=== PATIENT | female | born 1950 | race Caucasian/White ===

== ENCOUNTER 2021-02-22 18:23 | Inpatient (IN) ==
[2021-02-22] MEDS ORDERED: Loratadine 10 MG TABLET PO PRN (18:33)
[2021-02-22] MEDS ORDERED: QUEtiapine Fumarate 25 MG TABLET PO SCH (21:00)
[2021-02-23] MEDS: Gabapentin 100 MG CAPSULE PO SCH ×4 (03:39→21:45)
[2021-02-23] MEDS: QUEtiapine Fumarate 25 MG TABLET PO SCH ×4 (03:40→21:44)
[2021-02-23 06:36] LABS: Basophils % 0.5 %; Eosinophils # 0.1 K/mcL (0.0-0.6); Eosinophils % 0.8 %; Hematocrit 23.5 % (35.3-44.9); Hemoglobin 7.6 g/dL (11.5-15.4); Immature Granulocytes % 1.5 % (0-4); Lymphocytes # 0.8 K/mcL (0.6-4.6); Lymphocytes % 12.5 %; Mean Corpuscular HGB Conc 32.3 g/dL (31.6-35.5); Mean Corpuscular Hemoglobin 28.8 pg (28.0-33.3); Mean Platelet Volume 10.6 fL (9.4-12.4); Monocytes # 0.6 K/mcL (0.0-1.3); Monocytes % 9.1 %; Neutrophils # 4.6 K/mcL (1.6-8.9); Platelet Count 267 K/mcL (140-400); Red Blood Count 2.64 M/mcL (3.82-4.97); Red Cell Distribution Width 17.4 % (11.5-14.5); Segmented Neutrophils % 75.6 %; White Blood Count 6.1 K/mcL (4.3-11.1)
[2021-02-23 06:56] LABS: Potassium 3.6 mEq/L (3.5-5.1)
[2021-02-23] MEDS: Furosemide 40 MG TABLET PO SCH (09:23)
[2021-02-23] MEDS: amLODIPine 5 MG TABLET PO SCH (09:23)
[2021-02-23] MEDS: Thiamine (B-1) 100 MG TABLET PO SCH (09:23)
[2021-02-23] MEDS: Aspirin 81 MG TAB.CHEW PO SCH (09:23)
[2021-02-23] MEDS: (Glucosamine Chondroit) PO SCH (09:24)
[2021-02-23] MEDS: Multivit/Ca/Min/Fe/FA 1 TAB TABLET PO SCH (09:24)
[2021-02-24] MEDS: Thiamine (B-1) 100 MG TABLET PO SCH (09:19)
[2021-02-24] MEDS: Aspirin 81 MG TAB.CHEW PO SCH (09:19)
[2021-02-24] MEDS: Multivit/Ca/Min/Fe/FA 1 TAB TABLET PO SCH (09:19)
[2021-02-24] MEDS: QUEtiapine Fumarate 25 MG TABLET PO SCH ×3 (09:20→22:10)
[2021-02-24] MEDS: Gabapentin 100 MG CAPSULE PO SCH ×3 (09:20→22:10)
[2021-02-24] MEDS: amLODIPine 5 MG TABLET PO SCH (09:20)
[2021-02-24] MEDS: Furosemide 40 MG TABLET PO SCH (09:20)
[2021-02-24] MEDS: (Glucosamine Chondroit) PO SCH (09:20)
[2021-02-25] MEDS: Aspirin 81 MG TAB.CHEW PO SCH (19:32)
[2021-02-25] MEDS: amLODIPine 5 MG TABLET PO SCH (19:33)
[2021-02-25] MEDS: Gabapentin 100 MG CAPSULE PO SCH ×3 (19:33→20:32)
[2021-02-25] MEDS: Furosemide 40 MG TABLET PO SCH (19:33)
[2021-02-25] MEDS: (Glucosamine Chondroit) PO SCH (19:33)
[2021-02-25] MEDS: Thiamine (B-1) 100 MG TABLET PO SCH (19:34)
[2021-02-25] MEDS: Multivit/Ca/Min/Fe/FA 1 TAB TABLET PO SCH (19:34)
[2021-02-25] MEDS: QUEtiapine Fumarate 25 MG TABLET PO SCH ×3 (19:34→20:33)
[2021-02-25] MEDS ORDERED: Furosemide 40 MG TABLET PO ONE (21:00)
[2021-02-25] MEDS ORDERED: Multivit/Ca/Min/Fe/FA 1 TAB TABLET PO ONE (21:00)
[2021-02-25] MEDS ORDERED: Thiamine (B-1) 100 MG TABLET PO ONE (21:00)
[2021-02-25] MEDS ORDERED: amLODIPine 5 MG TABLET PO ONE (21:00)
[2021-02-25] MEDS ORDERED: Aspirin Enteric Coated 81 MG Tablet PO ONE (21:00)
[2021-02-25] MEDS ORDERED: lisinopriL 10 MG TABLET PO ONE (21:00)
[2021-02-26] MEDS: Thiamine (B-1) 100 MG TABLET PO SCH (08:56)
[2021-02-26] MEDS: lisinopriL 10 MG TABLET PO SCH (08:57)
[2021-02-26] MEDS: QUEtiapine Fumarate 25 MG TABLET PO SCH ×3 (08:57→21:56)
[2021-02-26] MEDS: Aspirin 81 MG TAB.CHEW PO SCH (08:57)
[2021-02-26] MEDS: Multivit/Ca/Min/Fe/FA 1 TAB TABLET PO SCH (08:57)
[2021-02-26] MEDS: amLODIPine 5 MG TABLET PO SCH (08:57)
[2021-02-26] MEDS: Furosemide 40 MG TABLET PO SCH (08:58)
[2021-02-26] MEDS: Gabapentin 100 MG CAPSULE PO SCH ×3 (08:58→21:56)
[2021-02-26] MEDS: (Glucosamine Chondroit) PO SCH (08:59)
[2021-02-26 12:49] LABS: Hematocrit 24.9 % (35.3-44.9); Mean Corpuscular HGB Conc 32.1 g/dL (31.6-35.5); Mean Corpuscular Hemoglobin 28.4 pg (28.0-33.3); Mean Corpuscular Volume 88.3 fL (83.0-100.0); Mean Platelet Volume 11.6 fL (9.4-12.4); Platelet Count 277 K/mcL (140-400); Red Blood Count 2.82 M/mcL (3.82-4.97); Red Cell Distribution Width 18.2 % (11.5-14.5); White Blood Count 6.2 K/mcL (4.3-11.1)
[2021-02-26 13:03] LABS: Calcium 7.6 mg/dL (8.6-10.3); Potassium 4.2 mEq/L (3.5-5.1)
[2021-02-27] MEDS: Aspirin 81 MG TAB.CHEW PO SCH (09:10)
[2021-02-27] MEDS: Gabapentin 100 MG CAPSULE PO SCH ×3 (09:10→20:28)
[2021-02-27] MEDS: amLODIPine 5 MG TABLET PO SCH (09:10)
[2021-02-27] MEDS: lisinopriL 10 MG TABLET PO SCH (09:11)
[2021-02-27] MEDS: QUEtiapine Fumarate 25 MG TABLET PO SCH ×3 (09:11→20:28)
[2021-02-27] MEDS: Multivit/Ca/Min/Fe/FA 1 TAB TABLET PO SCH (09:11)
[2021-02-27] MEDS: Thiamine (B-1) 100 MG TABLET PO SCH (09:11)
[2021-02-27] MEDS: (Glucosamine Chondroit) PO SCH (09:12)
[2021-02-27] MEDS: Furosemide 40 MG TABLET PO SCH (09:12)
[2021-02-28 05:25] LABS: Basophils % 0.7 %; Eosinophils # 0.1 K/mcL (0.0-0.6); Eosinophils % 2.5 %; Hematocrit 23.9 % (35.3-44.9); Hemoglobin 7.8 g/dL (11.5-15.4); Immature Granulocytes % 0.7 % (0-4); Lymphocytes # 0.6 K/mcL (0.6-4.6); Lymphocytes % 21.6 %; Mean Corpuscular HGB Conc 32.6 g/dL (31.6-35.5); Mean Corpuscular Hemoglobin 28.4 pg (28.0-33.3); Mean Corpuscular Volume 86.9 fL (83.0-100.0); Mean Platelet Volume 10.7 fL (9.4-12.4); Monocytes # 0.3 K/mcL (0.0-1.3); Monocytes % 11.7 %; Neutrophils # 1.8 K/mcL (1.6-8.9); Platelet Count 177 K/mcL (140-400); Red Blood Count 2.75 M/mcL (3.82-4.97); Red Cell Distribution Width 17.9 % (11.5-14.5); Segmented Neutrophils % 62.8 %; White Blood Count 2.8 K/mcL (4.3-11.1)
[2021-02-28 05:49] LABS: Albumin 2.1 g/dL (3.5-5.7); Albumin/Globulin Ratio 1.1 (1.1-2.2); Bilirubin,Total 0.4 mg/dL (0.3-1.0); Calcium 7.4 mg/dL (8.6-10.3); Globulin 1.9 g/dL (2.4-3.5)
[2021-02-28] MEDS: amLODIPine 5 MG TABLET PO SCH (07:54)
[2021-02-28] MEDS: Multivit/Ca/Min/Fe/FA 1 TAB TABLET PO SCH (07:55)
[2021-02-28] MEDS: Furosemide 40 MG TABLET PO SCH (07:55)
[2021-02-28] MEDS: Gabapentin 100 MG CAPSULE PO SCH ×3 (07:55→20:41)
[2021-02-28] MEDS: Aspirin 81 MG TAB.CHEW PO SCH (07:55)
[2021-02-28] MEDS: Thiamine (B-1) 100 MG TABLET PO SCH (07:55)
[2021-02-28] MEDS: (Glucosamine Chondroit) PO SCH (07:56)
[2021-02-28] MEDS: QUEtiapine Fumarate 25 MG TABLET PO SCH ×3 (07:56→20:41)
[2021-02-28] MEDS: lisinopriL 10 MG TABLET PO SCH (07:56)
[2021-03-01] MEDS: QUEtiapine Fumarate 25 MG TABLET PO SCH ×3 (08:31→20:27)
[2021-03-01] MEDS: Gabapentin 100 MG CAPSULE PO SCH ×3 (08:31→20:27)
[2021-03-01] MEDS: Multivit/Ca/Min/Fe/FA 1 TAB TABLET PO SCH (08:31)
[2021-03-01] MEDS: Aspirin 81 MG TAB.CHEW PO SCH (08:31)
[2021-03-01] MEDS: amLODIPine 5 MG TABLET PO SCH (08:32)
[2021-03-01] MEDS: (Glucosamine Chondroit) PO SCH (08:32)
[2021-03-01] MEDS: Furosemide 40 MG TABLET PO SCH (08:32)
[2021-03-01] MEDS: lisinopriL 10 MG TABLET PO SCH (08:32)
[2021-03-01] MEDS: Thiamine (B-1) 100 MG TABLET PO SCH (08:32)
[2021-03-02] MEDS: Furosemide 40 MG TABLET PO SCH (08:39)
[2021-03-02] MEDS: Aspirin 81 MG TAB.CHEW PO SCH (08:39)
[2021-03-02] MEDS: amLODIPine 5 MG TABLET PO SCH (08:39)
[2021-03-02] MEDS: Gabapentin 100 MG CAPSULE PO SCH ×3 (08:39→20:38)
[2021-03-02] MEDS: Multivit/Ca/Min/Fe/FA 1 TAB TABLET PO SCH (08:39)
[2021-03-02] MEDS: QUEtiapine Fumarate 25 MG TABLET PO SCH ×3 (08:39→20:38)
[2021-03-02] MEDS: lisinopriL 10 MG TABLET PO SCH (08:39)
[2021-03-02] MEDS: Thiamine (B-1) 100 MG TABLET PO SCH (08:39)
[2021-03-02] MEDS: (Glucosamine Chondroit) PO SCH (08:40)
[2021-03-03] MEDS ORDERED: *HR* Enoxaparin 40 MG/0.4 ML SYRINGE SQ SCH (06:00)
[2021-03-03 07:11] VITALS: BP 171/66; PULSE 83; RESP 14; TEMP 98.1; O2SAT 96
[2021-03-03] MEDS: Furosemide 40 MG TABLET PO SCH (09:04)
[2021-03-03] MEDS: Gabapentin 100 MG CAPSULE PO SCH (09:04)
[2021-03-03] MEDS: Thiamine (B-1) 100 MG TABLET PO SCH (09:04)
[2021-03-03] MEDS: QUEtiapine Fumarate 25 MG TABLET PO SCH (09:04)
[2021-03-03] MEDS: lisinopriL 10 MG TABLET PO SCH (09:04)
[2021-03-03] MEDS: amLODIPine 5 MG TABLET PO SCH (09:05)
[2021-03-03] MEDS: Aspirin 81 MG TAB.CHEW PO SCH (09:05)
[2021-03-03] MEDS: (Glucosamine Chondroit) PO SCH (09:06)
[2021-03-03] MEDS: Multivit/Ca/Min/Fe/FA 1 TAB TABLET PO SCH (09:06)
== END 2021-03-03 12:17 | disposition home health service (06) ==
LOC: INPPIK 22:55
PROVIDERS: ADMIT Family Medicine; ATTEND Family Medicine